=== PATIENT | female | born 1990 | race Caucasian/White ===

== ENCOUNTER 2016-10-28 06:13 | Day surgery (SDC) | payer BC ==
[2016-10-26 18:17] LABS: HEMATOCRIT 40.9 % (36.0-48.0); HEMOGLOBIN 13.9 g/dL (12.0-16.0)
[2016-10-26 18:32] LABS: BUN (BLOOD UREA NITROGEN) 14 MG/DL (6-23); CALCIUM, SERUM 9.1 MG/DL (8.5-10.4); CHLORIDE, SERUM 104 MMOL/L (96-112); CO2 (CARBON DIOXIDE) 27 MMOL/L (24-34); CREATININE 0.81 MG/DL (0.55-1.02); GFR AFRICAN AMERICAN 118 ML/MIN (>=60); GFR NON AFRICAN AMERICAN 102 ML/MIN (>=60); GLUCOSE, SERUM 131 MG/DL (60-99); SODIUM, SERUM 141 MMOL/L (135-148)
--- NOTE | ~2016-10-28 | OP ---
Record Of Operation [facility] [address] [place]. [address] NAME: MINA KILGORE : 89 STATUS : REG [facility] [place] PAT#: [id number] AGE: 26 ADM/REG DATE : 10/28/16 MR#: [id number] REPORT SERV DATE: 10/28/16 DICTATED BY: SARAH AMATO DATE: 10/28/16 REPORT STATUS : Draft TRANSCRIBED BY: MODL DATE: 10/28/16 DATE OF PROCEDURE: 10/28/2016 PREOPERATIVE DIAGNOSES: 1. Bilateral chronic frontal sinusitis. 2. Bilateral chronic ethmoid sinusitis. 3. Bilateral chronic maxillary sinusitis. 4. Septal deviation. 5. Bilateral inferior turbinate hypertrophy. POSTOPERATIVE DIAGNOSES: 1. Bilateral chronic frontal sinusitis. 2. Bilateral chronic ethmoid sinusitis. 3. Bilateral chronic maxillary sinusitis. 4. Septal deviation. 5. Bilateral inferior turbinate hypertrophy. PROCEDURES: 1. Bilateral endoscopic total ethmoidectomy. 2. Bilateral endoscopic frontal sinusotomy. 3. Bilateral endoscopic middle meatus antrostomy. 4. Septoplasty. 5. Bilateral inferior turbinoplasty. 6. Right endoscopic excision of dayanara bullosa. SURGEON: Sarah Amato M.D. ANESTHESIA: General. COMPLICATIONS: None. COUNTS: All counts correct following the procedure. ESTIMATED BLOOD LOSS: 25 mL. PREOPERATIVE INFORMED CONSENT: We discussed the risk and benefits of surgery including, but not limited to bleeding, infection, possible CSF leak, possible ocular injury including blindness, possible persistent sinus disease despite surgery, possible need for revision surgery, possible septal perforation, possible saddle nose deformity, possible persistent nasal obstruction despite surgery, and consent is on the chart. PROCEDURE IN DETAIL: The patient was brought to the operating suite and placed on the operating table in supine position. General endotracheal anesthesia was initiated without incident. Both sides of the nose were injected with 15 mL of 1% lidocaine and 1:100,000 epinephrine for hemostasis. On the right side of the nose, the dayanara bullosa was incised using a sickle knife and then taken down using straight and upbiting Alek-Cut forceps. The Record Of [facility] [address] [place]. [address] NAME: MINA KILGORE : 89 STATUS : REG [facility] [place] PAT#: [id number] AGE: 26 ADM/REG DATE : 10/28/16 MR#: [id number] REPORT SERV DATE: 10/28/16 DICTATED BY: SARAH AMATO DATE: 10/28/16 REPORT STATUS : Draft TRANSCRIBED BY: CHRISTIAN DATE: 10/28/16 backbiting forceps was used to take down the uncinate process and the Xomed sinus shaver was used to remove the remainder of the uncinate process, and natural ostium of the maxillary sinus was enlarged using straight and backbiting Alek-Cut forceps. The ethmoid bulla was opened widely using the Xomed sinus shaver working from a posterior to anterior fashion. The posterior to anterior ethmoid air cells were marsupialized. The Acclarent frontal sinus introducer was used to advance the illuminated wire across the nasofrontal duct and then the balloon was advanced over the wire and dilated up to 10 atmospheres and along the length of the nasofrontal duct. Attention was taken to the left side of the nose. Similar fashion as described on the right, the uncinate process was taken down using pediatric backbiting forceps and Xomed sinus shaver. The natural ostium of the maxillary sinus was enlarged using straight and backbiting Alek-Cut forceps. Ethmoid bulla was opened widely using Xomed sinus shaver and then the basal lamella of the middle turbinate was penetrated using Xomed sinus shaver working from the posterior to anterior fashion along the lamina papyracea. The posterior to anterior ethmoid air cells were marsupialized. Again, the Acclarent introducer was used to advance the wire across the nasal frontal duct which was dilated up to 10 atmospheres along the length of the nasofrontal duct. Attention was taken to the septum. Following this, a #15 blade scalpel was used to performed a left hemitransfixion incision down to the underlying septal cartilage. A mucoperichondrial flap was raised along the left side of the nasal septum using Adrian and Klamath elevators. The bony cartilaginous junction was using the Dino elevator and then the mucoperiosteum was raised off both sides of the bony nasal septum. A thin strip of the cartilaginous septum along the maxillary crest was removed using a #15 blade scalpel and a Dino elevator, allowing the cartilaginous septum to swing back in the midline. The maxillary crest was exposed using the Hays elevator and removed using the 6.0 mm straight osteotome. The deviated bony nasal septum was taken down using open Russell-Chinchilla forceps, as well as Maisha forceps. Once the septal deviation had been corrected, the left hemitransfixion incision was closed using interrupted 4-0 chromic suture. The Xomed turbinate shaver was then used to perform submucous resection of both inferior turbinates without difficulty and both inferior turbinates were infractured and both the medial and lateral surfaces were cauterized using the Harmonic scalpel. Both inferior turbinates were then outfractured. Breathe-Easy septal splints were then placed on either side of the nasal septum and sutured in the midline using 2-0 nylon suture. The nasopharynx was suctioned free of any blood clots. Propel nasal stents were placed into the ethmoid cavity bilaterally. The patient was awakened from anesthesia and taken to the recovery room in stable condition. LAMONT/CHRISTIAN Sarah Amato M.D. Record Of Operation [address] [address] NAME: MINA KILGORE : 89 STATUS : [facility] [place] PAT#: [id number] AGE: 26 ADM/REG DATE : 10/28/16 MR#: [id number] REPORT SERV DATE: 10/28/16 DICTATED BY: SARAH AMATO DATE: 10/28/16 REPORT STATUS : Draft TRANSCRIBED BY: CHRISTIAN DATE: 10/28/16 / [id number] CC: Clare Barcenas Ginger Danielle Melissa Phillips, M.D.
[~2016-10-28 06:13] MED LIST: BIRTH CONTROL PILL; FORTAMET500 MG; T; TRULICITY0.75 MG/0. SQ; XYZAL5 MG PO
== END 2016-10-28 23:59 | disposition home or self-care (01) ==
LOC: MSC 06:13
PROVIDERS: Otolaryngology
PROC: 09BU4ZZ Excision of Right Ethmoid Sinus, Percutaneous Endoscopic Approach (ICD-10-PCS; 2016-10-28)
PROC: 09BM4ZZ Excision of Nasal Septum, Percutaneous Endoscopic Approach (ICD-10-PCS; 2016-10-28)
PROC: 099R4ZZ Drainage of Left Maxillary Sinus, Percutaneous Endoscopic Approach (ICD-10-PCS; principal; 2016-10-28 07:45)
PROC: 099Q4ZZ Drainage of Right Maxillary Sinus, Percutaneous Endoscopic Approach (ICD-10-PCS; 2016-10-28 07:45)
PROC: 09BL4ZZ Excision of Nasal Turbinate, Percutaneous Endoscopic Approach (ICD-10-PCS; 2016-10-28 07:45)
PROC: 09BL4ZZ Excision of Nasal Turbinate, Percutaneous Endoscopic Approach (ICD-10-PCS; 2016-10-28 07:45)
PROC: 09BV4ZZ Excision of Left Ethmoid Sinus, Percutaneous Endoscopic Approach (ICD-10-PCS; 2016-10-28 07:45)
DX: J32.9 Chronic sinusitis, unspecified (principal); J32.1 Chronic frontal sinusitis; J32.2 Chronic ethmoidal sinusitis; J32.0 Chronic maxillary sinusitis; J34.2 Deviated nasal septum; J34.3 Hypertrophy of nasal turbinates; J45.909 Unspecified asthma, uncomplicated; F31.9 Bipolar disorder, unspecified; F41.9 Anxiety disorder, unspecified; E11.9 Type 2 diabetes mellitus without complications; Z87.898 Personal history of other specified conditions
CPT/HCPCS: 80048; 82962; 84703; 85014; 85018; 88300; 88305; A9270-GY; C1726; J0690; J2250; J2270; J2405; J3010